=== PATIENT | female | born 1995 ===

== ENCOUNTER 2021-11-16 20:29 | Emergency (ER) | payer OTHER, SELFPAY ==
[~2021-11-16] VITALS: Ht 167.6 cm; Wt 81.6 kg
[2021-11-16 21:10] VITALS: BP_SYST 120
--- NOTE | 2021-11-16 21:15 | NUR ---
Patient came in to the emergency room with complaints of feeling short of breath. Reports cough for the whole week and now feeling very congested. Patient is mildly anxious, states history of anxiety. Patient denies fever, chills, N/V, received covid vaccine x 2. Reports tested positive of Covid19 yesterday. Patient vital signs within normal limits. Awaiting ER MD to [facility].
--- NOTE | 2021-11-16 21:15 | NUR ---
Patient triaged and placed in tent. VSS and patient appears in no acute distress at this time. Accompanied by self , awaiting available bed, and MD notified of need for MSE.
--- NOTE | 2021-11-16 23:34 | NUR ---
ER in tent examining patient.
[2021-11-16] MEDS ORDERED: GUAI-723 PO (23:52)
[2021-11-16] MEDS ORDERED: ALBMDI INH (23:52)
[2021-11-16] MEDS ORDERED: PSEU120T57 PO (23:52)
--- NOTE | 2021-11-17 00:04 | NUR ---
Patient states she is feeling better, breathing easy, respirations even unlabored. Vital signs within normal limits.
[2021-11-17 00:06] VITALS: BP_SYST 121
--- NOTE | 2021-11-17 00:06 | NUR ---
Patient given written and verbal discharge instructions and verbalizes understanding. ER MD discussed with patient the results and treatment provided. Patient in stable condition. Rx of Albuterol, mucinex, sudafed sent to pharmacy of choice by ER MD. Patient educated on pain management and to follow up with PMD. Opportunity for questions provided and answered.
== END 2021-11-17 00:06 | disposition home or self-care (01) ==
LOC: SED 20:29
DX: U07.1 COVID-19 (principal); F41.9 Anxiety disorder, unspecified; F12.90 Cannabis use, unspecified, uncomplicated; F17.210 Nicotine dependence, cigarettes, uncomplicated; Z79.899 Other long term (current) drug therapy
CPT/HCPCS: 71045; 99283